=== PATIENT | female | born 1995 | race Two or more races ===

== ENCOUNTER 2016-03-14 20:34 | Emergency (ER) | payer SELFPAY ==
[2016-03-14 21:25] VITALS: BP 140/76
--- NOTE | 2016-03-14 21:36 | ER Document Report ---
ED Medical Screen (RME) - General Chief Complaint: Abscess Stated Complaint: POSSIBLE ABSCESS Notes: 21 yo female c/o painful abscess to right inner thigh x 2 days. + drainage. no fever. TRAVEL OUTSIDE OF THE [place] IN LAST 30 DAYS: No - Related Data Allergies/Adverse Reactions: No Known Allergies Allergy (Verified 03/14/16 21:25) Past Medical History - Social History Chew tobacco use (# tins/day): No Frequency of alcohol use: None Drug Abuse: None Renal/ Medical History: Denies: Hx Peritoneal Dialysis Physical Exam - Vital signs Vitals: Temp Pulse BP Pulse Ox 98.1 F 103 H 140/76 H 98 03/14/16 20:42 03/14/16 20:42 03/14/16 20:42 03/14/16 20:42 Course - Vital Signs Vital signs: Temp Pulse Resp BP Pulse Ox 98.1 F 103 H 140/76 H 98 03/14/16 20:42 03/14/16 20:42 03/14/16 20:42 03/14/16 20:42
== END 2016-03-15 02:16 | disposition left against medical advice (07) ==
LOC: ER 20:34
DX: L02.415 Cutaneous abscess of right lower limb (principal); Z53.20 Procedure and treatment not carried out because of patient's decision for unspecified reasons
CPT/HCPCS: 99281